=== PATIENT | female | born 1960 | race Caucasian/White ===

== ENCOUNTER 2019-02-13 07:52 | Emergency (ER) | payer BC ==
[2019-02-13 08:04] VITALS: BP 128/79
--- NOTE | 2019-02-13 08:09 | UC ---
Ear Complaint HPI - HPI Summary HPI Summary: 58-year-old female presents with 2 day history of right ear pain. States 3 days ago she felt like there was some fluid in her ear and the next day started with ear pain. Associated with a subjective low-grade fever. Denies hearing loss, tinnitus, drainage, vertigo, nasal congestion, runny nose, or cough. - History of Current Complaint Chief Complaint: UCEar Stated Complaint: RIGHT EAR COMPLAINT Time Seen by Provider: 02/13/19 08:06 Hx Obtained From: Patient Pain Intensity: 7 - Allergies/Home Medications Allergies/Adverse Reactions: Allergies Allergy/AdvReac Type Severity Reaction Status Date / Time No Known Allergies Allergy Verified 02/13/19 08:02 PMH/Surg Hx/FS Hx/Imm Hx Previously Healthy: Yes - Denies significant PMH - Surgical History Surgical History: Yes Surgery Procedure, Year, and Place: hysterectomy, adnoidectomy - Family History Known Family History: Positive: Non-Contributory - Social History Occupation: Employed Full-time Lives: With Family Alcohol Use: Rare Substance Use Type: None Smoking Status (MU): Never Smoked Tobacco Review of Systems All Other Systems Reviewed And Are Negative: Yes Constitutional: Positive: Fever - Subjective Skin: Negative: Rash Eyes: Negative: Drainage, Eye Redness ENT: Positive: Ear Ache. Negative: Sore Throat, Nasal Discharge, Sinus Congestion, Sinus Pain/Tenderness Respiratory: Negative: Shortness Of Breath, Cough Cardiovascular: Negative: Palpitations Gastrointestinal: Negative: Abdominal Pain, Vomiting, Diarrhea, Nausea Genitourinary: Positive: Negative Musculoskeletal: Positive: Negative Neurological: Positive: Negative Is Patient Immunocompromised?: No Physical Exam - Summary Physical Exam Summary: GENERAL APPEARANCE: Well developed, obese, alert and cooperative, and appears to be in no acute distress. EYES: Conjunctiva clear. No drainage. Vision is grossly intact. EARS: External auditory canals and tympanic membranes clear, hearing grossly intact. NOSE: No nasal discharge. THROAT: Pharynx normal No tonsilar inflammation, swelling, exudate, or lesions. Uvula midline. Oral cavity normal. Teeth and gingiva in good general condition. NECK: Neck supple, non-tender without lymphadenopathy. CARDIAC: Normal S1 and S2. No S3, S4 or murmurs. Rhythm is regular. There is no peripheral edema, cyanosis or pallor. Extremities are warm and well perfused. Capillary refill is less than 2 seconds. Peripheral pulses intact. LUNGS: Clear to auscultation without rales, rhonchi, wheezing or diminished breath sounds. ABDOMEN: Positive bowel sounds. Soft, nondistended, nontender. No guarding or rebound. No masses or hepatosplenomegally. MUSKULOSKELETAL: ROM intact to all extremities. No joint erythema or tenderness. Normal muscular development. Normal gait. SKIN: Skin normal color, texture and turgor with no lesions or eruptions. Triage Information Reviewed: Yes Vital Signs: Initial Vital Signs Temp 97.8 F 02/13/19 08:01 Pulse 82 02/13/19 08:01 Resp 16 02/13/19 08:01 BP 128/79 02/13/19 08:01 Pulse Ox 98 02/13/19 08:01 Vital Signs Reviewed: Yes Ear Complaint Course/Dx - Course Course Of Treatment: 58-year-old female presents with 2 day history of right ear pain. States 3 days ago she felt like there was some fluid in her ear and the next day started with ear pain. Associated with a subjective low-grade fever. Denies hearing loss, tinnitus, drainage, vertigo, nasal congestion, runny nose, or cough. Afebrile. Vital signs stable. Exam was overall unremarkable. Suspect pain may be related to eustachian tube dysfunction recommending fluticasone nasal spray 2 sprays each nostril twice a day 2 weeks as well as [id number] analgesics as needed. She is to follow-up with her primary care provider in 7 days if symptoms do not improve. Anticipatory guidance and warning symptoms were reviewed with the patient. Verbalizes understanding and agrees with plan of care. - Differential Dx/Diagnosis Differential Diagnosis/HQI/PQRI: Otitis Externa, Otitis Media, Perforated TM, URI, Other - Serous otitis, eustachian tube dysfunction Provider Diagnosis: Eustachian tube dysfunction Discharge - Sign-Out/Discharge Documenting (check all that apply): Patient Departure All imaging exams completed and their final reports reviewed: No Studies - Discharge Plan Condition: Stable Disposition: HOME Prescriptions: Fluticasone NASAL SPRAY 50MCG* [Flonase NASAL SPRAY 50MCG*] 2 spray BOTH NARES DAILY #1 btl Patient Education Materials: Serous Otitis Media (ED) Referrals: Debra Arceo MD [Primary Care Provider] - 7 Days (If no improvement in symptoms.) Additional Instructions: There was no evidence of an ear infection on your exam today. I suspect that your symptoms may be from a condition called eustachian tube dysfuction that can allow a build up of pressure or fluid without infection (serous otitis) that can also cause pain and discomfort. Use fluticasone (Flonase) nasal spray 2 sprays each nostril once a day for the next 2 weeks. May take acetaminophen (Tylenol) or ibuprofen (Advil, Motrin) according to directions as needed for pain. Follow up with your primary care provider in 7 days if no improvement in symptoms. Seek immediate medical attention if you develop fever greater than 100.5 F, have increased pain despite taking pain medications, have loss of hearing, drainage or blood coming from the ear, or any worsening of symptoms. - Billing Disposition and Condition Condition: STABLE Disposition: Home - Attestation Statements Provider Attestation: Per institutional requirements, I have reviewed the chart, however, I was not consulted specifically or made aware of this patient by the midlevel provider. I did not personally evaluate, interact with , or disposition this patient
== END 2019-02-13 08:22 | disposition home or self-care (01) ==
LOC: UCCORT 07:52
DX: H69.81 Other specified disorders of Eustachian tube, right ear (principal); E66.9 Obesity, unspecified
CPT/HCPCS: 99202; G0463

== ENCOUNTER 2020-02-01 09:08 | Emergency (ER) | payer BC ==
[2020-02-01 09:54] VITALS: BP 134/94
--- NOTE | 2020-02-01 10:41 | UC ---
Respiratory Complaint HPI - HPI Summary HPI Summary: cough x 2 weeks cough is productive with yellow sputum worse with deep breathing , better with rest, c/o sore throat, nasal congest, pnd , fever, chills , body aches, denies any sob, no chest pain - History of Current Complaint Chief Complaint: UCRespiratory Stated Complaint: ST, COUGH Time Seen by Provider: 02/01/20 09:52 Hx Obtained From: Patient Onset/Duration: Gradual Onset, Lasting Weeks - 2, Still Present Timing: Constant Severity Initially: Moderate Severity Currently: Moderate Pain Intensity: 2 Pain Scale Used: 0-10 Numeric Character: Cough: Productive Aggravating Factors: Exertion, Deep Breaths Alleviating Factors: Nothing Associated Signs And Symptoms: Positive: Fever, Chills, URI, Nasal Congestion. Negative: Dyspnea, Pleuritic Chest Pain, Calf Pain, Calf Swelling - Allergies/Home Medications Allergies/Adverse Reactions: Allergies Allergy/AdvReac Type Severity Reaction Status Date / Time No Known Allergies Allergy Verified 02/01/20 09:46 Home Medications: Home Medications Phenylephrine/Dm/Acetaminop/GG [Tylenol Cold-Flu Severe Liq] 30 ml PO Q6H PRN [History Confirmed 02/01/20] predniSONE [Prednisone 20 MG TAB] 20 mg PO BID #10 tablet 02/01/20 [Rx] PMH/Surg Hx/FS Hx/Imm Hx Previously Healthy: Yes - Surgical History Surgical History: Yes Surgery Procedure, Year, and Place: Hysterectomy, 1999, [facility]; , 1995, [facility]; Uterine Fibroids x 2, ~1989; Adnoidectomy, ~1968 - Family History Known Family History: Positive: Non-Contributory - Social History Alcohol Use: Rare Substance Use Type: None Smoking Status (MU): Never Smoked Tobacco Review of Systems All Other Systems Reviewed And Are Negative: Yes Constitutional: Positive: Fever, Chills, Fatigue Skin: Positive: Negative Eyes: Positive: Negative ENT: Positive: Sore Throat, Nasal Discharge Respiratory: Positive: Cough Cardiovascular: Positive: Negative Is Patient Immunocompromised?: No Physical Exam Triage Information Reviewed: Yes Appearance: Well-Appearing, Obese Vital Signs: Initial Vital Signs Temp 98.4 F 02/01/20 09:44 Pulse 84 02/01/20 09:44 Resp 18 02/01/20 09:44 BP 134/94 02/01/20 09:44 Pulse Ox 99 02/01/20 09:44 Vital Signs Reviewed: Yes Eye Exam: Normal ENT: Positive: Normal ENT inspection, Hearing grossly normal, Pharynx normal, Nasal drainage, TMs normal Neck exam: Normal Neck: Positive: Supple, Nontender, No Lymphadenopathy Respiratory: Positive: Chest non-tender, Lungs clear, Normal breath sounds Cardiovascular: Positive: RRR, No Murmur, Pulses Normal Abdomen Description: Positive: Nontender, Soft Respiratory Course/Dx - Differential Dx/Diagnosis Provider Diagnosis: Bronchitis Discharge ED - Sign-Out/Discharge Documenting (check all that apply): Patient Departure All imaging exams completed and their final reports reviewed: No Studies - Discharge Plan Condition: Stable Disposition: HOME Prescriptions: predniSONE [Prednisone 20 MG TAB] 20 mg PO BID #10 tablet Patient Education Materials: Acute Bronchitis (ED) Forms: *Work Release Referrals: Debra Arceo MD [Primary Care Provider] - If Needed - Billing Disposition and Condition Condition: STABLE Disposition: Home
== END 2020-02-01 10:23 | disposition home or self-care (01) ==
LOC: UCCORT 09:08
DX: J40 Bronchitis, not specified as acute or chronic (principal); E66.9 Obesity, unspecified; R09.89 Other specified symptoms and signs involving the circulatory and respiratory systems; R09.81 Nasal congestion
CPT/HCPCS: 99212; G0463